=== PATIENT | male | born 1995 | race Caucasian/White ===

== ENCOUNTER 2018-06-28 18:04 | Emergency (ER) | payer OTHER ==
--- NOTE | 2018-06-28 20:44 | ED ---
Upper Extremity Pain - HPI Summary HPI Summary: 22-year-old male presents with pain, erythema, and swelling of his left elbow. States he was playing Lacrosse on 06/22/2018 and sustained a superficial abrasion to the back of his left upper arm and he collided with another patient. On 06/25/2018 he started developing some pain and redness to the posterior left elbow and was evaluated by his orthopedic surgeon the next day. He reports lab work and MRI were performed and states that his orthopedic surgeon informed him that these were both normal. Over the past couple of days he has had increased pain and the redness and swelling has now spread to involve his upper arm and forearm. States he has some difficulty fully extending his arm due to the swelling. Denies fever, chills, joint pain, numbness, or tingling. - History of Current Complaint Chief Complaint: EDExtremityUpper Stated Complaint: LT ELBOW PAIN PER PT Time Seen by Provider: 06/28/18 20:25 Hx Obtained From: Patient - Allergies/Home Medications Allergies/Adverse Reactions: Allergies Allergy/AdvReac Type Severity Reaction Status Date / Time No Known Allergies Allergy Verified 06/28/18 18:11 Home Medications: Home Medications ARIPiprazole TAB* [Abilify 20 MG TAB*] 20 mg PO DAILY 06/28/18 [History Confirmed 06/28/18] Escitalopram Oxalate [Lexapro 10 mg] 10 mg PO DAILY 06/28/18 [History Confirmed 06/28/18] PMH/Surg Hx/FS Hx/Imm Hx Previously Healthy: Yes - Denies significant PMH Infectious Disease History: No Infectious Disease History: Denies: Traveled Outside the [place] in Last 30 Days - Family History Known Family History: Positive: Non-Contributory - Social History Occupation: Employed Part-time Lives: With Family Alcohol Use: Occasionally Substance Use Type: Reports: None Smoking Status (MU): Never Smoked Tobacco Review of Systems Negative: Fever, Chills Cardiovascular: Negative Respiratory: Negative Gastrointestinal: Negative Genitourinary: Negative Positive: Decreased ROM, Edema. Negative: Arthralgia, Myalgia Skin: Other - See HPI Neurological: Negative All Other Systems Reviewed And Are Negative: Yes Physical Exam - Summary Physical Exam Summary: GENERAL APPEARANCE: Well developed, well nourished, alert and cooperative, and appears to be in no acute distress. CARDIAC: Normal S1 and S2. No S3, S4 or murmurs. Rhythm is regular. There is no peripheral edema, cyanosis or pallor. Extremities are warm and well perfused. Capillary refill is less than 2 seconds. Peripheral pulses intact. LUNGS: Clear to auscultation without rales, rhonchi, wheezing or diminished breath sounds. ABDOMEN: Positive bowel sounds. Soft, nondistended, nontender. No guarding or rebound. No masses or hepatosplenomegally. MUSKULOSKELETAL: Extension of left elbow mildly decreased due to edema. No joint tenderness or swollen bursa. Normal muscular development. Circulation and sensation intact distally. SKIN: There is a 1 cm superficial abrasion noted to the distal, posterior upper arm with extensive erythema that extends from the mid posterior upper arm to the mid posterior forearm. Erythema is not circumferential. Area of erythema was marked with skin pen. Triage Information Reviewed: Yes Vital Signs On Initial Exam: Initial Vitals Temp Pulse Resp BP Pulse Ox 98.5 F 75 16 132/70 96 06/28/18 18:05 06/28/18 18:05 06/28/18 18:05 06/28/18 18:05 06/28/18 18:05 Vital Signs Reviewed: Yes Diagnostics - Vital Signs Vital Signs Temp Pulse Resp BP Pulse Ox 06/28/18 20:09 99.1 F 52 16 139/78 99 06/28/18 18:05 98.5 F 75 16 132/70 96 - Laboratory Result Diagrams: 06/28/18 20:52 06/28/18 20:52 Lab Statement: Any lab studies that have been ordered have been reviewed, and results considered in the medical decision making process. Course/Dx - Course Course Of Treatment: 22-year-old male presents with pain, erythema, and swelling of his left elbow. States he was playing Lacrosse on 06/22/2018 and sustained a superficial abrasion to the back of his left upper arm and he collided with another patient. On 06/25/2018 he started developing some pain and redness to the posterior left elbow and was evaluated by his orthopedic surgeon the next day. He reports lab work and MRI were performed and states that his orthopedic surgeon informed him that these were both normal. Over the past couple of days he has had increased pain and the redness and swelling has now spread to involve his upper arm and forearm. States he has some difficulty fully extending his arm due to the swelling. Denies fever, chills, joint pain, numbness, or tingling. Afebrile. Vital signs stable. Patient had a 1 cm superficial abrasion noted to the distal, posterior upper arm with extensive erythema that extends from the mid posterior upper arm to the mid posterior forearm. Erythema is not circumferential. Extension of left elbow mildly decreased due to edema. No joint tenderness or swollen bursa. Normal muscular development. Circulation and sensation intact distally. A CBC and CMP were obtained. Patient had a normal white blood cell count of 9.0 and remainder of labs were essentially normal. Blood cultures are pending. Patient was given a dose of clindamycin 600 mg IV. Will continue him on clindamycin 300 mg 4 times a day 7 days for cellulitis. Patient is to follow-up with his orthopedic surgery at the next available appointment. He is to call to schedule this appointment as soon as he returns home in 2 days. Anticipatory guidance and warning symptoms were reviewed with the patient. Verbalizes understanding and agrees with plan of care. - Diagnoses Differential Diagnosis/HQI/PQRI: Positive: Bursitis, Septic Arthritis, Other - Cellulitis Provider Diagnoses: Cellulitis of left arm Discharge - Sign-Out/Discharge Documenting (check all that apply): Patient Departure Patient Received Moderate/Deep Sedation with Procedure: No - Discharge Plan Condition: Stable Disposition: HOME Prescriptions: Clindamycin HCl 300 mg PO QID 7 Days #28 capsule Patient Education Materials: Cellulitis (ED) Referrals: No Primary Care Phys,NOPCP [Primary Care Provider] - Additional Instructions: Based on your history and exam we will be treating you for a condition called cellulitis which is an infection of the skin. Your lab work was normal. Blood cultures are pending and we will contact you if there is any concern for a blood infection. You were given a dose of IV antibiotics called clindamycin 600 mg in the emergency room. We will have you continue the clindamycin 300 mg 4 times a day for the next 7 days. He may continue to use acetaminophen (Tylenol) or ibuprofen (Advil, Motrin) according to directions as needed for any pain. Follow-up with your orthopedic surgeon at the next available appointment as soon as you get home. Return to the emergency room if you develop a fever greater than 100.5 F, have severe pain that is not managed by pain medication, the redness continues to spread, you have increased swelling, he developed any numbness or tingling in the hands or fingers, or have any worsening of symptoms. - Billing Disposition and Condition Condition: STABLE Disposition: Home
[2018-06-28] MEDS ORDERED: Clindamycin 600 MG/D5W BAG(*) 600 MG/50 ML BAG IV ONE (20:57)
[2018-06-28 20:58] LABS: ABS Eosinophils 0.1 10^3/ul (0-0.6); ABS Lymphocytes 2.4 10^3/ul (1.0-4.8); ABS Monocytes 0.9 10^3/ul (0-0.8); ABS Neutrophils 5.6 10^3/ul (1.5-7.7); Eosinophil % 1.6 %; Hematocrit 41 % (42-52); Hemoglobin 13.9 g/dL (14.0-18.0); Lymphocyte % 26.6 %; Mean Corpuscular HGB Conc 34 g/dL (31-36); Mean Corpuscular Hemoglobin 29 pg (27-31); Mean Corpuscular Volume 85 fL (80-94); Mean Platelet Volume 9.4 fL (7.4-10.4); Nucleated Red Blood Cells % 0.1; Platelet Count 208 10^3/uL (150-450); Red Blood Count 4.82 10^6 /uL (4.18-5.48); Red Cell Distribution Width 13 % (10.5-15)
[2018-06-28 21:20] LABS: Albumin 4.4 g/dL (3.2-5.2); Albumin/Globulin Ratio 1.5 (1-3); BUN/Creatinine Ratio 12.4 (8-20); Calcium 10.1 mg/dL (8.6-10.3); EGFR African American 97.3 (>60); EGFR Non-African American 80.4 (>60); Potassium 4.5 mmol/L (3.5-5.0); Total Bilirubin 0.5 mg/dL (0.2-1.0); Total Protein 7.4 g/dL (6.4-8.9)
[2018-06-28] MEDS ORDERED: Clindamycin 600 MG IVPREMIX(* 600 MG/50 ML SDV IV ONE (21:30)
[2018-06-28] MEDS ORDERED: Clindamycin CAP* 150 MG PO ONE (21:59)
[2018-06-28 22:32] VITALS: BP 136/69
== END 2018-06-28 22:31 | disposition home or self-care (01) ==
LOC: ED 18:04
DX: L03.114 Cellulitis of left upper limb (principal)
CPT/HCPCS: 36415; 80053; 85025; 87040; 96365; 99282; A9270-GY